=== PATIENT | female | born 1950 | race Caucasian/White ===

== ENCOUNTER 2017-12-18 19:31 | Emergency (ER) | payer MEDICARE ==
[2017-12-18] MEDS ORDERED: Mag-Al Plus 1200 MG/1200 MG/120 MG/30 ML UDCUP ONE (20:23)
[2017-12-18] MEDS ORDERED: Lidocaine Viscous Sol 2% 15 ml UD Cup ONE (20:23)
[2017-12-18] MEDS ORDERED: Lidocaine Viscous Sol 2% 15 ml UD Cup SSW SCH (20:30)
--- NOTE | 2017-12-18 20:40 | RAD ---
SOFT TISSUE NECK: Date: 12-18-17 FINDINGS: No opaque foreign body was seen. The prevertebral soft tissues are normal in thickness. The epiglotti s is normal in size. Degenerative changes are seen in the cervical spine with disc space narrowing present at C4 and below . Facet arthritis is present as well. IMPRESSION: 1. No acute soft tissue abnormality. 2. Cervical spondylosis. POS: HOME
[2017-12-18] MEDS ORDERED: Mag-Al Plus 1200 MG/1200 MG/120 MG/30 ML UDCUP PO SCH (20:45)
== END 2017-12-18 21:19 | disposition home or self-care (01) ==
LOC: BURERS 19:31
DX: R09.89 Other specified symptoms and signs involving the circulatory and respiratory systems (principal); E11.9 Type 2 diabetes mellitus without complications; E03.9 Hypothyroidism, unspecified; Z79.84 Long term (current) use of oral hypoglycemic drugs; Z79.899 Other long term (current) drug therapy
CPT/HCPCS: 70360

== ENCOUNTER 2024-06-21 03:51 | Emergency (ER) | payer MEDICARE ==
[2024-06-21] MEDS ORDERED: Aspirin Chewable 81 MG TAB ONE (04:19)
[2024-06-21 04:30] LABS: #Basophils 0.1 thou/uL (0.0-0.2); #Eosinphils 0.2 thou/uL (0.0-0.7); #Monocytes 0.7 thou/uL (0.11-0.59); %Basophils 1.3 % (0.0-1.0); %Eosinophils 2.5 % (0.0-10.0); %Lymphocytes 42.8 % (21.0-51.0); %Monocytes 10.2 % (0.0-10.0); %Neutrophils 43.2 % (42.0-75.0); Hematocrit 41.2 % (36.0-47.0); Hemoglobin 14.4 g/dL (12.0-16.0); Mean Corpuscular Hemoglobin 29.4 pg (27.0-31.0); Mean Platelet Volume 6.7 fL (7.4-10.4); Platelet Count 256 10x3/uL (130-400); RBC Distribution Width 11.5 % (11.5-14.5); Red Blood Cell (RBC) Count 4.91 mill/uL (4.20-5.40)
[2024-06-21 04:48] LABS: ALT (SGPT) 24 U/L (8-55); AST (SGOT) 17 U/L (5-34); Albumin 3.8 g/dL (3.4-4.8); Anion Gap 15 mmol/L (10-20); BUN (Urea Nitrogen) 12 mg/dL (9.8-20.1); Bilirubin, Total 0.4 mg/dL (0.2-1.2); Calc. Creatinine Clearance 0 mL/min (70-130); Calcium 9.7 mg/dL (7.8-10.44); Carbon Dioxide 24 mmol/L (23-31); Chloride 104 mmol/L (98-107); Estimated GFR 75; Globulin 2.8 g/dL (2.4-3.5); Glucose 153 mg/dL (83-110); Potassium 4.2 mmol/L (3.5-5.1); Protein, Total 6.6 g/dL (5.8-8.1); Sodium 139 mmol/L (136-145)
[2024-06-21 04:54] LABS: Troponin I Less than 0.010 ng/mL (< 0.028)
[2024-06-21 05:04] LABS: Alkaline Phosphatase 53 U/L (40-110)
== END 2024-06-21 06:16 | disposition short-term general hospital (02) ==
LOC: BURERS 03:51
DX: R07.89 Other chest pain (principal); E11.9 Type 2 diabetes mellitus without complications; E03.9 Hypothyroidism, unspecified; Z79.84 Long term (current) use of oral hypoglycemic drugs; Z79.899 Other long term (current) drug therapy
CPT/HCPCS: 71046; 80053; 83880; 84484; 85025; 93005; 94760